=== PATIENT | female | born 1965 | race Caucasian/White ===

== ENCOUNTER 2023-10-19 11:06 | Outpatient (OUT) | payer BC, SELFPAY ==
--- NOTE | 2023-10-19 11:09 | MM_ITS ---
Patient Name: JOYCELYN LUNA MR#: [id number] : 1965 Exam Date: 10/19/2023 Ordering Doctor: DR LOREN FREEMAN RADIOLOGY REPORT PROCEDURE: MM TOMOSYNTHESIS SCREENING BI COMPARISON: [facility] MAMM SCREEN 3D LES CAD, 03/20/2022. MG MAMM SCREEN LES W CAD, 04/20/2020. MG MAMM SCREEN LES W CAD, 11/19/2018. MG MAMM LES SCRN W CAD DIG, 07/22/2013. INDICATIONS: screening Calculator Name NCI Breast Cancer Risk Assessment Tool 5 Year Breast Cancer Risk 1.30% Lifetime Breast Cancer Risk 6.60% Personal Breast Cancer No Personal Ovarian Cancer No Treatments None Family Cancers Grandmother-paternal with breast cancer at age 80. LOCATION: [facility] BREAST COMPOSITION: Extremely dense, which lowers the sensitivity of mammography. FINDINGS: DIAGNOSTIC CATEGORY 1--NEGATIVE. RIGHT BREAST: No significant suspicious finding. No significant change has occurred. LEFT BREAST: No significant suspicious finding. No significant change has occurred. RECOMMENDATIONS: ROUTINE MAMMOGRAM AND CLINICAL EVALUATION IN 12 MONTHS. PLEASE NOTE: A NORMAL MAMMOGRAM DOES NOT EXCLUDE THE POSSIBILITY OF BREAST CANCER. A CLINICALLY SUSPICIOUS PALPABLE LUMP SHOULD BE BIOPSIED. Dictated by: Burke Bush M.D. on 10/19/2023 at 15:32 Approved by: Burke Bush M.D. on 10/19/2023 at 15:34
== END 2023-10-19 11:07 | disposition home or self-care (01) ==
LOC: MAMMO 11:06
PROVIDERS: PCP Nurse Practitioner Family; Visit Provider Nurse Practitioner Family
DX: Z12.31 Encounter for screening mammogram for malignant neoplasm of breast (principal); Z80.3 Family history of malignant neoplasm of breast
CPT/HCPCS: 77063; 77067